=== PATIENT | female | born 1945 | race Caucasian/White ===

== ENCOUNTER 2021-02-11 09:03 | Inpatient (IN) | payer MEDICARE, BC ==
[2021-02-11 09:54] LABS: #Eosinphils 0.1 10x3/uL (0.0-0.5); #Monocytes 0.5 10x3/uL (0.0-1.1); #Neutrophils 4.1 10x3/uL (1.5-8.4); %Basophils 0.5 % (0.0-2.0); %Eosinophils 1.2 % (0.0-6.0); %Lymphocytes 19.1 % (18.0-47.0); Hemoglobin 13.1 g/dL (12.0-15.5); Mean Corpuscular Hemoglobin 29.6 pg (27.0-33.0); Mean Corpuscular Volume 92.5 fl (81.6-98.3); Mean Platelet Volume 9.8 fl (7.4-10.4); Platelet Count 328 10x3/uL (150-450); RBC Distribution Width 13.3 % (11.5-14.5); Red Blood Cell (RBC) Count 4.42 10x6/uL (3.90-5.03); White Blood Cell (WBC) Count 5.8 10x3/uL (3.5-10.5)
[2021-02-11 10:11] LABS: ALT (SGPT) 32 U/L (8-55); AST (SGOT) 68 U/L (5-34); Albumin 4.6 g/dL (3.4-4.8); Alkaline Phosphatase 128 U/L (40-110); Anion Gap 22 mmol/L (10-20); BUN (Urea Nitrogen) 42 mg/dL (9.8-20.1); Bilirubin, Total 0.5 mg/dL (0.2-1.2); CK (CPK) 71 U/L (29-168); Calc. Creatinine Clearance 0 mL/min (70-130); Calcium 10.8 mg/dL (7.8-10.44); Carbon Dioxide 23 mmol/L (23-31); Chloride 101 mmol/L (98-107); Globulin 2.8 g/dL (2.4-3.5); Glucose 81 mg/dL (83-110); Lipase 25 U/L (8-78); Potassium 4.5 mmol/L (3.5-5.1); Protein, Total 7.4 g/dL (5.8-8.1); Sodium 141 mmol/L (136-145)
[2021-02-11 10:30] LABS: CKMB 8.2 ng/mL (0-6.6)
[2021-02-11] MEDS ORDERED: Meclizine HCl 25 MG TAB ONE (10:34)
[2021-02-11] MEDS ORDERED: Aspirin Chewable 81 MG TAB ONE (10:34)
[2021-02-11 11:13] LABS: Bilirubin Neg (Negative); Blood, Urine 10 (Negative); Clarity Slightly Cloudy (Clear); Glucose, Urine (Dipstick) Normal (Negative); Ketone, Urine Negative (Negative); Leukocyte 500 (Negative); Nitrite Negative (Negative); Protein, Urine (Dipstick) 15 mg/dl (Neg-Trace); Specific Gravity, Urine 1.015 (1.002-1.036); Urobilinogen Normal mg/dL (Less than 2)
[2021-02-11 11:20] LABS: Bacteria/HPF 3+ HPF (None Seen); RBC/HPF None Seen HPF (0-3)
[2021-02-11] MEDS ORDERED: Ondansetron PF 4 MG/2 ML Vial ONE (11:25)
[2021-02-11] MEDS ORDERED: Sulfameth/Trimethoprim DS 800-160mg TAB ONE (11:32)
[2021-02-11 12:15] VITALS: BMI 17.4
[2021-02-11 12:21] VITALS: BP 155/77; TEMP 97.6
[2021-02-11 13:36] LABS: Troponin I 0.134 ng/mL (< 0.028)
[2021-02-11] MEDS ORDERED: Lorazepam 2 MG/ML VIAL SLOW IVP PRN (14:28)
[2021-02-11] MEDS ORDERED: Ondansetron PF 4 MG/2 ML Vial IVP PRN (14:29)
[2021-02-11] MEDS ORDERED: Hydroxychloroquine Sulfate 200 MG TAB PO SCH (14:33)
[2021-02-11] MEDS ORDERED: Meclizine HCl 12.5 MG TAB PO PRN (14:33)
[2021-02-11 15:09] LABS: Cardiac Risk 2.3 (Less than 4.5)
[2021-02-11 15:19] LABS: Troponin I 0.138 ng/mL (< 0.028)
[2021-02-11] MEDS ORDERED: Gemfibrozil 600 MG TAB PO SCH (21:00)
[2021-02-11] MEDS ORDERED: ALPRAZolam 0.25 MG TAB PO SCH (21:00)
[2021-02-11 21:47] LABS: SARS-CoV-2 PCR by NAA Not Detected (NotDetected)
[2021-02-12] MEDS ORDERED: predniSONE 1 MG TAB PO SCH (08:00)
[2021-02-12] MEDS ORDERED: Hydroxychloroquine Sulfate 200 MG TAB PO SCH (09:00)
[2021-02-12] MEDS ORDERED: Multivit, Therapeutic 1 TAB PO SCH (09:00)
[2021-02-12] MEDS ORDERED: Aspirin Chewable 81 MG TAB PO SCH (09:00)
== END 2021-02-11 21:10 | disposition short-term general hospital (02) | DRG 65 ==
LOC: CSHERS 09:03 → CSHTELE 11:35
PROVIDERS: ADMIT Hospitalist; ATTEND Hospitalist
DX: I61.3 Nontraumatic intracerebral hemorrhage in brain stem (principal); N17.9 Acute kidney failure, unspecified; E87.2 Acidosis; E27.40 Unspecified adrenocortical insufficiency; E78.5 Hyperlipidemia, unspecified; Z20.822 Contact with and (suspected) exposure to COVID-19; H91.93 Unspecified hearing loss, bilateral; M06.9 Rheumatoid arthritis, unspecified; M81.0 Age-related osteoporosis without current pathological fracture; Z79.82 Long term (current) use of aspirin; Z79.52 Long term (current) use of systemic steroids; Z79.899 Other long term (current) drug therapy; Z74.01 Bed confinement status; Z88.1 Allergy status to other antibiotic agents; M24.50 Contracture, unspecified joint
CPT/HCPCS: 36416; 70450; 70551; 71045; 80053; 80061; 81003; 81015; 82550; 82553; 83605; 83690; 84484; 85025; 87635; 93005; J2060; J2405; U0003; U0005

== ENCOUNTER 2021-08-29 14:58 | Inpatient (IN) | payer MEDICARE, BC ==
[2021-08-29 16:54] LABS: #Eosinphils 0.1 10x3/uL (0.0-0.5); #Monocytes 0.6 10x3/uL (0.0-1.1); #Neutrophils 5.7 10x3/uL (1.5-8.4); %Basophils 0.5 % (0.0-2.0); %Eosinophils 0.7 % (0.0-6.0); %Lymphocytes 13.1 % (18.0-47.0); %Monocytes 8.5 % (0.0-10.0); %Neutrophils 76.7 % (40.0-75.0); Mean Corpuscular HGB CONC 32.6 g/dL (32.0-36.0); Mean Corpuscular Hemoglobin 29.2 pg (27.0-33.0); Mean Corpuscular Volume 89.8 fl (81.6-98.3); Platelet Count 285 10x3/uL (150-450); RBC Distribution Width 14.7 % (11.5-14.5); Red Blood Cell (RBC) Count 3.42 10x6/uL (3.90-5.03); White Blood Cell (WBC) Count 7.4 10x3/uL (3.5-10.5)
[2021-08-29 17:05] LABS: ALT (SGPT) 22 U/L (8-55); AST (SGOT) 52 U/L (5-34); Albumin 3.6 g/dL (3.4-4.8); Alkaline Phosphatase 89 U/L (40-110); Anion Gap 15 mmol/L (10-20); BUN (Urea Nitrogen) 13 mg/dL (9.8-20.1); Bilirubin, Total 0.3 mg/dL (0.2-1.2); Calc. Creatinine Clearance 0 mL/min (70-130); Calcium 9.2 mg/dL (7.8-10.44); Carbon Dioxide 21 mmol/L (23-31); Chloride 107 mmol/L (98-107); Globulin 2.8 g/dL (2.4-3.5); Glucose 94 mg/dL (83-110); Potassium 4.7 mmol/L (3.5-5.1); Protein, Total 6.4 g/dL (5.8-8.1); Sodium 138 mmol/L (136-145)
[2021-08-29 17:57] LABS: Bilirubin Neg (Negative); Blood, Urine 25 (Negative); Clarity Clear (Clear); Glucose, Urine (Dipstick) Normal (Negative); Ketone, Urine Negative (Negative); Leukocyte 100 (Negative); Nitrite Negative (Negative); Protein, Urine (Dipstick) Negative (Neg-Trace); Specific Gravity, Urine 1.005 (1.002-1.036); Urobilinogen Normal mg/dL (Less than 2)
[2021-08-29 18:15] LABS: Bacteria/HPF 1+ HPF (None Seen); RBC/HPF 0-3 HPF (0-3)
[2021-08-29] MEDS ORDERED: Acetaminophen 500 MG TAB ONE (19:12)
[2021-08-29 19:52] LABS: CKMB 14.7 ng/mL (0-6.6)
[2021-08-29] MEDS ORDERED: Aspirin Chewable 81 MG TAB ONE (20:05)
[2021-08-29] MEDS ORDERED: Furosemide 40 MG/4 ML VIAL ONE (20:05)
[2021-08-29] MEDS ORDERED: Fentanyl 100 MCG/2 ML VIAL ONE (21:06)
[2021-08-29] MEDS ORDERED: Calcium Carbonate 500 MG ChewTAB PO PRN (22:11)
[2021-08-29] MEDS ORDERED: HYDROcodone/Acetaminophen 5/325 mg Tablet PO PRN (22:11)
[2021-08-29] MEDS ORDERED: Guaifenesin DM 100-10/5 ML UDCUP PO PRN (22:11)
[2021-08-29] MEDS ORDERED: Senokot S 8.6-50 MG TAB PO PRN (22:11)
[2021-08-30 03:48] LABS: #Basophils 0.1 10x3/uL (0.0-0.2); #Eosinphils 0.2 10x3/uL (0.0-0.5); #Monocytes 0.6 10x3/uL (0.0-1.1); #Neutrophils 3.8 10x3/uL (1.5-8.4); %Basophils 0.8 % (0.0-2.0); %Eosinophils 3.7 % (0.0-6.0); %Lymphocytes 22.1 % (18.0-47.0); %Monocytes 10.3 % (0.0-10.0); %Neutrophils 62.4 % (40.0-75.0); Hemoglobin 10.6 g/dL (12.0-15.5); Mean Corpuscular HGB CONC 32.9 g/dL (32.0-36.0); Mean Corpuscular Hemoglobin 29.2 pg (27.0-33.0); Mean Corpuscular Volume 88.7 fl (81.6-98.3); Platelet Count 299 10x3/uL (150-450); RBC Distribution Width 14.6 % (11.5-14.5); Red Blood Cell (RBC) Count 3.63 10x6/uL (3.90-5.03)
[2021-08-30 04:03] LABS: Anion Gap 15 mmol/L (10-20); BUN (Urea Nitrogen) 13 mg/dL (9.8-20.1); Calc. Creatinine Clearance 0 mL/min (70-130); Carbon Dioxide 22 mmol/L (23-31); Cardiac Risk 2.9 (Less than 4.5); Chloride 107 mmol/L (98-107); Cholesterol 123 mg/dl (< 200 Desired); Glucose 86 mg/dL (83-110); HDL Cholesterol 42 mg/dL (>60 Neg Risk); LDL Cholesterol, Calculated 58 mg/dL; Magnesium 1.3 mg/dL (1.6-2.6); Potassium 4.2 mmol/L (3.5-5.1); Sodium 140 mmol/L (136-145); Triglycerides 115 mg/dL (Less than 150)
[2021-08-30] MEDS: Ondansetron PF 4 MG/2 ML Vial IVP PRN (04:55)
[2021-08-30] MEDS: Furosemide 40 MG/4 ML VIAL SLOW IVP SCH ×3 (05:01→17:44)
[2021-08-30 06:16] VITALS: BMI 29.5
[2021-08-30 06:32] LABS: Legionella Urinary Ag Negative (Negative); Strep pneumo Urine Ag NEGATIVE (NEGATIVE)
[2021-08-30] MEDS: Enoxaparin Sodium 40 MG/0.4 ML SYRINGE SC SCH (09:38)
[2021-08-30] MEDS: Aspirin Chewable 81 MG TAB PO SCH (09:40)
[2021-08-30] MEDS: Carvedilol 3.125 MG TAB PO SCH ×2 (09:40→20:26)
[2021-08-30] MEDS: predniSONE 5 MG TAB PO SCH (09:40)
[2021-08-30] MEDS: Gemfibrozil 600 MG TAB PO SCH (09:41)
[2021-08-30] MEDS: Hydroxychloroquine Sulfate 200 MG TAB PO SCH (09:41)
[2021-08-30] MEDS: Lisinopril 2.5 MG TAB PO SCH (09:42)
[2021-08-30] MEDS ORDERED: Acetaminophen 500 MG TAB PO PRN (11:44)
[2021-08-30] MEDS ORDERED: Magnesium 2 GM/50 ML 2 GM in Premix Bag 1 BAG IVPB SCH (12:00)
[2021-08-30] MEDS: Acetaminophen/Codeine 30-300mg Tablet PO PRN (12:20)
[2021-08-30] MEDS: ALPRAZolam 0.5 MG TAB PO SCH (20:26)
[2021-08-31 05:41] LABS: #Basophils 0.1 10x3/uL (0.0-0.2); #Eosinphils 0.2 10x3/uL (0.0-0.5); #Monocytes 0.9 10x3/uL (0.0-1.1); #Neutrophils 4.7 10x3/uL (1.5-8.4); %Basophils 0.8 % (0.0-2.0); %Eosinophils 3.3 % (0.0-6.0); %Monocytes 11.8 % (0.0-10.0); %Neutrophils 64.4 % (40.0-75.0); Hemoglobin 10.4 g/dL (12.0-15.5); Mean Corpuscular HGB CONC 31.5 g/dL (32.0-36.0); Mean Corpuscular Volume 91.9 fl (81.6-98.3); Mean Platelet Volume 10.6 fl (7.4-10.4); Platelet Count 390 10x3/uL (150-450); RBC Distribution Width 14.5 % (11.5-14.5); Red Blood Cell (RBC) Count 3.59 10x6/uL (3.90-5.03); White Blood Cell (WBC) Count 7.4 10x3/uL (3.5-10.5)
[2021-08-31 06:01] LABS: Troponin I 0.112 ng/mL (< 0.028)
[2021-08-31] MEDS: Gemfibrozil 600 MG TAB PO SCH (06:04)
[2021-08-31] MEDS: Acetaminophen/Codeine 30-300mg Tablet PO PRN (06:04)
[2021-08-31] MEDS: Furosemide 40 MG/4 ML VIAL SLOW IVP SCH ×2 (06:05→15:07)
[2021-08-31 06:32] LABS: Anion Gap 19 mmol/L (10-20); BUN (Urea Nitrogen) 24 mg/dL (9.8-20.1); Calc. Creatinine Clearance 33 mL/min (70-130); Calcium 8.7 mg/dL (7.8-10.44); Carbon Dioxide 25 mmol/L (23-31); Chloride 97 mmol/L (98-107); Glucose 73 mg/dL (83-110); Magnesium 2.6 mg/dL (1.6-2.6); Potassium 4.3 mmol/L (3.5-5.1); Sodium 137 mmol/L (136-145)
[2021-08-31] MEDS ORDERED: FLU VACC QS2021-22(65YR UP)/PF 240 MCG/0.7 ML SYRINGE IM ONE (07:00)
[2021-08-31] MEDS: Carvedilol 3.125 MG TAB PO SCH ×3 (09:11→20:43)
[2021-08-31] MEDS: Enoxaparin Sodium 40 MG/0.4 ML SYRINGE SC SCH (09:11)
[2021-08-31] MEDS: Lisinopril 2.5 MG TAB PO SCH ×2 (09:12→12:04)
[2021-08-31] MEDS: Aspirin Chewable 81 MG TAB PO SCH (09:12)
[2021-08-31] MEDS: Hydroxychloroquine Sulfate 200 MG TAB PO SCH (09:12)
[2021-08-31] MEDS: predniSONE 5 MG TAB PO SCH (09:14)
[2021-08-31] MEDS: Ondansetron PF 4 MG/2 ML Vial IVP PRN (11:59)
[2021-08-31] MEDS ORDERED: Bisacodyl 10 MG SUPP PR PRN (15:34)
[2021-08-31] MEDS ORDERED: Bisacodyl 5 MG TAB PO PRN (15:39)
[2021-08-31] MEDS: Acetaminophen 325 MG TAB PO PRN (20:05)
[2021-08-31] MEDS: ALPRAZolam 0.5 MG TAB PO SCH (20:43)
[2021-09-01] MEDS: Acetaminophen 325 MG TAB PO PRN (06:22)
[2021-09-01] MEDS ORDERED: Furosemide 40 MG TAB PO SCH (07:30)
[2021-09-01] MEDS ORDERED: Enoxaparin Sodium 40 MG/0.4 ML SYRINGE SC SCH (09:00)
[2021-09-01 09:52] LABS: Platelet Count 82 10x3/uL (150-450)
[2021-09-01 09:53] LABS: #Eosinphils 0.1 10x3/uL (0.0-0.5); #Monocytes 0.6 10x3/uL (0.0-1.1); #Neutrophils 3.9 10x3/uL (1.5-8.4); %Basophils 0.5 % (0.0-2.0); %Eosinophils 2.2 % (0.0-6.0); %Lymphocytes 15.4 % (18.0-47.0); %Neutrophils 70.4 % (40.0-75.0); Hemoglobin 9.8 g/dL (12.0-15.5); Mean Corpuscular HGB CONC 30.4 g/dL (32.0-36.0); Mean Corpuscular Hemoglobin 29.3 pg (27.0-33.0); Mean Corpuscular Volume 96.4 fl (81.6-98.3); Mean Platelet Volume 10.7 fl (7.4-10.4); RBC Distribution Width 14.3 % (11.5-14.5); Red Blood Cell (RBC) Count 3.34 10x6/uL (3.90-5.03); White Blood Cell (WBC) Count 5.6 10x3/uL (3.5-10.5)
[2021-09-01 10:11] LABS: Anion Gap 20 mmol/L (10-20); BUN (Urea Nitrogen) 34 mg/dL (9.8-20.1); Calc. Creatinine Clearance 30 mL/min (70-130); Calcium 8.9 mg/dL (7.8-10.44); Carbon Dioxide 23 mmol/L (23-31); Chloride 97 mmol/L (98-107); Glucose 113 mg/dL (83-110); Magnesium 2.1 mg/dL (1.6-2.6); Potassium 4.7 mmol/L (3.5-5.1); Sodium 135 mmol/L (136-145)
[2021-09-01] MEDS: predniSONE 5 MG TAB PO SCH (10:20)
[2021-09-01] MEDS: Gemfibrozil 600 MG TAB PO SCH (10:20)
[2021-09-01] MEDS: Hydroxychloroquine Sulfate 200 MG TAB PO SCH (10:20)
[2021-09-01] MEDS: Aspirin Chewable 81 MG TAB PO SCH (10:21)
[2021-09-01] MEDS: Carvedilol 3.125 MG TAB PO SCH ×2 (10:21→10:38)
[2021-09-01] MEDS: Furosemide 20 MG TAB PO SCH ×2 (10:28→10:38)
[2021-09-01 10:36] LABS: Platelet Morphology Comment Appears Decreased
[2021-09-01] MEDS ORDERED: Fluconazole 100 MG TAB PO SCH (12:15)
[2021-09-01 13:27] LABS: #Eosinphils 0.2 10x3/uL (0.0-0.5); #Monocytes 0.8 10x3/uL (0.0-1.1); #Neutrophils 5.4 10x3/uL (1.5-8.4); %Basophils 0.6 % (0.0-2.0); %Eosinophils 2.2 % (0.0-6.0); %Lymphocytes 10.4 % (18.0-47.0); %Monocytes 11.6 % (0.0-10.0); %Neutrophils 74.8 % (40.0-75.0); Hemoglobin 10.4 g/dL (12.0-15.5); Mean Corpuscular HGB CONC 31.6 g/dL (32.0-36.0); Mean Corpuscular Hemoglobin 29.3 pg (27.0-33.0); Mean Corpuscular Volume 92.7 fl (81.6-98.3); Mean Platelet Volume 9.5 fl (7.4-10.4); Platelet Count 358 10x3/uL (150-450); RBC Distribution Width 14.2 % (11.5-14.5); Red Blood Cell (RBC) Count 3.55 10x6/uL (3.90-5.03); White Blood Cell (WBC) Count 7.2 10x3/uL (3.5-10.5)
[2021-09-01] MEDS: Acetaminophen/Codeine 30-300mg Tablet PO PRN (14:16)
[2021-09-01 16:40] VITALS: BP 123/59; TEMP 97.6
[2021-09-02] MEDS ORDERED: Furosemide 40 MG TAB PO SCH (07:30)
== END 2021-09-01 19:10 | disposition home or self-care (01) | DRG 291 ==
LOC: CSHERS 14:58 → CSHTELE 14:59
PROVIDERS: ADMIT Student in an Organized Health Care Education/Training Program; ATTEND Internal Medicine
DX: I11.0 Hypertensive heart disease with heart failure (principal); I50.31 Acute diastolic (congestive) heart failure; J98.11 Atelectasis; I24.8 Other forms of acute ischemic heart disease; M06.9 Rheumatoid arthritis, unspecified; F41.9 Anxiety disorder, unspecified; G89.29 Other chronic pain; K21.9 Gastro-esophageal reflux disease without esophagitis; D63.8 Anemia in other chronic diseases classified elsewhere; F32.A Depression, unspecified; I35.0 Nonrheumatic aortic (valve) stenosis; E78.2 Mixed hyperlipidemia; Z87.442 Personal history of urinary calculi; Z99.3 Dependence on wheelchair; Z98.890 Other specified postprocedural states
CPT/HCPCS: 36415; 36416; 51701; 71045; 74176; 80048; 80053; 80061; 81003; 81015; 82553; 83735; 83880; 84145; 84443; 84484; 85025; 87449; 87899; 93005; 93010; 93306; 93970; 94760; 96374; 96375; J1940; J2405; J3010; J3475; J7512

== ENCOUNTER 2021-09-04 13:48 | Emergency (ER) | payer MEDICARE, BC ==
[2021-09-04] MEDS ORDERED: Ketorolac Tromethamine 30 MG/ML VIAL ONE (15:51)
[2021-09-04] MEDS ORDERED: Ondansetron PF 4 MG/2 ML Vial ONE (15:51)
[2021-09-04 16:00] LABS: #Basophils 0.1 10x3/uL (0.0-0.2); #Monocytes 0.7 10x3/uL (0.0-1.1); #Neutrophils 9.5 10x3/uL (1.5-8.4); %Basophils 0.4 % (0.0-2.0); %Eosinophils 0.3 % (0.0-6.0); %Lymphocytes 9.8 % (18.0-47.0); Hemoglobin 12.9 g/dL (12.0-15.5); Mean Corpuscular HGB CONC 30.8 g/dL (32.0-36.0); Mean Corpuscular Hemoglobin 29.1 pg (27.0-33.0); Mean Corpuscular Volume 94.4 fl (81.6-98.3); Mean Platelet Volume 9.8 fl (7.4-10.4); Platelet Count 469 10x3/uL (150-450); RBC Distribution Width 14.3 % (11.5-14.5); Red Blood Cell (RBC) Count 4.44 10x6/uL (3.90-5.03); White Blood Cell (WBC) Count 11.5 10x3/uL (3.5-10.5)
[2021-09-04 16:13] LABS: ALT (SGPT) 19 U/L (8-55); AST (SGOT) 49 U/L (5-34); Albumin 4.2 g/dL (3.4-4.8); Alkaline Phosphatase 109 U/L (40-110); Anion Gap 26 mmol/L (10-20); BUN (Urea Nitrogen) 25 mg/dL (9.8-20.1); Bilirubin, Total 0.3 mg/dL (0.2-1.2); Calc. Creatinine Clearance 0 mL/min (70-130); Calcium 10.3 mg/dL (7.8-10.44); Carbon Dioxide 21 mmol/L (23-31); Chloride 96 mmol/L (98-107); Globulin 3.6 g/dL (2.4-3.5); Lipase 21 U/L (8-78); Potassium 4.8 mmol/L (3.5-5.1); Protein, Total 7.8 g/dL (5.8-8.1); Sodium 138 mmol/L (136-145)
[2021-09-04 16:16] LABS: Glucose 56 mg/dL (83-110)
[2021-09-04] MEDS ORDERED: Morphine 4 MG/ML VIAL ONE (18:05)
[2021-09-04 20:56] LABS: Bilirubin 1+ (Negative); Blood, Urine 250 (Negative); Clarity Slightly Cloudy (Clear); Glucose, Urine (Dipstick) Normal (Negative); Ketone, Urine 50 mg/dL (Negative); Leukocyte 500 (Negative); Nitrite Negative (Negative); Protein, Urine (Dipstick) 100 mg/dl (Neg-Trace); Urobilinogen Normal mg/dL (Less than 2)
[2021-09-04 21:11] LABS: Bacteria/HPF 4+ HPF (None Seen); Epithelial Cast 0-3 LPF (None Seen); Mucous/LPF 3+ LPF (<2+); Transitional Epithelial 0-3 HPF (None Seen); WBC/HPF Greater than 50 HPF (0-3); White Blood Cell Cast 0-3 LPF (None Seen)
== END 2021-09-04 23:10 | disposition home or self-care (01) ==
LOC: CSHERS 13:48
DX: N39.0 Urinary tract infection, site not specified (principal); E87.2 Acidosis; D72.829 Elevated white blood cell count, unspecified; R11.2 Nausea with vomiting, unspecified; M06.9 Rheumatoid arthritis, unspecified; E78.5 Hyperlipidemia, unspecified; M81.0 Age-related osteoporosis without current pathological fracture
CPT/HCPCS: 51701; 80053; 81003; 81015; 83690; 85025; 87077; 87086; 87186; 96374; 96375; J1885; J2270; J2405